=== PATIENT | female | born 1935 | race Caucasian/White ===

== ENCOUNTER 2025-08-10 15:24 | Inpatient (IN) ==
[2025-08-10] MEDS: 0.9 % SODIUM CHLORIDE 1,000 ML IV ONE (16:03)
[2025-08-10 16:15] LABS: Basophils # (Auto) 0.01 K/mcL (0.00-0.30); Basophils % (Auto) 0.1 % (0.0-2.0); Eosinophils # (Auto) 0 K/mcL (0.00-0.70); Eosinophils % (Auto) 0 % (0.0-7.0); Hematocrit 41.0 % (34.1-44.9); Hemoglobin 13.9 g/dL (11.2-15.7); Lymphocytes # (Auto) 1.40 K/mcL (1.50-4.80); Lymphocytes % (Auto) 11.2 % (15.5-49.0); Mean Corpuscular HGB Conc 33.9 g/dL (31.0-36.0); Monocytes # (Auto) 0.65 K/mcL (0.10-0.90); Monocytes % (Auto) 5.2 % (1.0-12.0); Neutrophils % (Auto) 83.0 % (38.0-78.0); Platelet Count 431 K/mcL (140-440); RBC 4.23 M/mcL (3.59-5.38); WBC 12.5 K/mcL (4.5-11.0)
[2025-08-10 16:48] LABS: ALT/SGPT 21 U/L (<40); AST/SGOT 37 U/L (<32); Albumin 4.2 gm/dL (3.2-5.2); Albumin/Globulin Ratio 1.6 (1.0-2.3); Alkaline Phosphatase 100 U/L (39-117); Anion Gap 18.0 (8.0-16.0); Bilirubin,Total 0.8 mg/dL (0.1-1.0); Blood Urea Nitrogen 29 mg/dL (8-23); Calcium 9.9 mg/dL (8.6-10.4); Carbon Dioxide 25 mmol/L (22-30); Chloride 93 mmol/L (96-108); Globulin 2.6 gm/dL (2.2-3.7); Glucose 175 mg/dL (70-105); Potassium 3.8 mmol/L (3.3-5.1); Sodium 136 mmol/L (133-145)
[2025-08-10] MEDS ORDERED: ALBUTEROL SULFATE 2.5 MG/3 ML NEBULIZER NEB PRN (19:14)
[2025-08-10] MEDS: 0.9 % SODIUM CHLORIDE 1,000 ML IV SCH (20:22)
[2025-08-10] MEDS: SENNOSIDES 1 TABLET PO SCH (21:30)
[2025-08-10] MEDS: DOCUSATE SODIUM 100 MG CAPSULE PO SCH (21:30)
[2025-08-11] MEDS: 0.9 % SODIUM CHLORIDE 10 ML SYRINGE IV SCH (01:28)
[2025-08-11] MEDS: FAMOTIDINE/PF 20 MG/2 ML VIAL IV SCH (01:28)
[2025-08-11 03:20] LABS: Bilirubin,Urine NEGATIVE (Negative); Color,Urine YELLOW; Glucose,Urine (UA) NEGATIVE (Negative); Ketones,Urine TRACE mg/dL (Negative); Leukocyte Esterase,Urine NEGATIVE /uL (Negative); PH,Urine 6.0 (5.0-9.0); Protein,Urine TRACE mg/dL (Negative); Specific Gravity,Urine 1.015 (1.000-1.035); Urobilinogen,Urine 0.2 mg/dL
[2025-08-11 06:06] LABS: Basophils # (Auto) 0.01 K/mcL (0.00-0.30); Basophils % (Auto) 0.1 % (0.0-2.0); Eosinophils # (Auto) 0 K/mcL (0.00-0.70); Eosinophils % (Auto) 0 % (0.0-7.0); Hematocrit 33.7 % (34.1-44.9); Hemoglobin 11.4 g/dL (11.2-15.7); Lymphocytes # (Auto) 1.48 K/mcL (1.50-4.80); Lymphocytes % (Auto) 13.7 % (15.5-49.0); Mean Corpuscular HGB Conc 33.8 g/dL (31.0-36.0); Monocytes # (Auto) 0.67 K/mcL (0.10-0.90); Monocytes % (Auto) 6.2 % (1.0-12.0); Neutrophils % (Auto) 79.5 % (38.0-78.0); Platelet Count 360 K/mcL (140-440); RBC 3.46 M/mcL (3.59-5.38); WBC 10.8 K/mcL (4.5-11.0)
[2025-08-11 06:22] LABS: ALT/SGPT 15 U/L (<40); AST/SGOT 20 U/L (<32); Albumin 3.3 gm/dL (3.2-5.2); Albumin/Globulin Ratio 1.7 (1.0-2.3); Alkaline Phosphatase 80 U/L (39-117); Anion Gap 10.0 (8.0-16.0); Bilirubin,Total 0.7 mg/dL (0.1-1.0); Blood Urea Nitrogen 28 mg/dL (8-23); Calcium 8.2 mg/dL (8.6-10.4); Carbon Dioxide 25 mmol/L (22-30); Chloride 103 mmol/L (96-108); Globulin 2.0 gm/dL (2.2-3.7); Glucose 128 mg/dL (70-105); Potassium 3.7 mmol/L (3.3-5.1); Sodium 138 mmol/L (133-145)
[2025-08-11] MEDS ORDERED: fentaNYL 100 MCG/2 ML VIAL ONE (07:13)
[2025-08-11] MEDS ORDERED: PROPOFOL 200 MG/20 ML VIAL IV ONE (07:13)
[2025-08-11] MEDS ORDERED: BUPIVACAINE PF 0.5% 10 ML VIAL ONE (07:15)
[2025-08-11] MEDS ORDERED: ONDANSETRON 4 MG/2 ML VIAL ONE (07:15)
[2025-08-11] MEDS ORDERED: BUPIVACAINE LIPOSOMAL 1.3% 10 ML VIAL IJ ONE (07:15)
[2025-08-11] MEDS ORDERED: GLYCOPYRROLATE 0.2 MG/ML VIAL IV ONE (07:15)
[2025-08-11] MEDS ORDERED: SUCCINYLCHOLINE 200 MG/10 ML VIAL IV ONE (07:15)
[2025-08-11] MEDS ORDERED: DEXAMETHASONE 10 MG/ML VIAL ONE (07:15)
[2025-08-11] MEDS ORDERED: FAMOTIDINE/PF 20 MG/2 ML VIAL IV ONE (07:15)
[2025-08-11] MEDS ORDERED: ROCURONIUM 10 MG/ML ML IV ONE (07:15)
[2025-08-11] MEDS ORDERED: MAGNESIUM SULFATE 2 GM/50 ML BAG IV ONE (07:16)
[2025-08-11] MEDS ORDERED: PHENYLephrine 1 MG/10 ML SYRINGE (ANEST) ONE (07:49)
[2025-08-11] MEDS ORDERED: ePHEDrine 50 MG/5 ML SYRINGE (ANEST) IV ONE (07:50)
[2025-08-11] MEDS ORDERED: SUGAMMADEX SODIUM 200 MG/2 ML VIAL IV ONE (09:00)
[2025-08-11] MEDS ORDERED: IPRATROPIUM/ALBUTEROL 3 ML AMPUL.NEB NEB PRN (09:04)
[2025-08-11] MEDS ORDERED: ONDANSETRON 4 MG/2 ML VIAL IV PRN (09:04)
[2025-08-11] MEDS: ACETAMINOPHEN 1,000 MG/100 ML BAG IV ONE (09:36)
[2025-08-11] MEDS: fentaNYL 100 MCG/2 ML VIAL IV PRN (09:43)
[2025-08-11] MEDS: PIPERACILLIN SODIUM/TAZOBACTAM 3.375 GM in DEXTROSE 5% IN WATER 50 ML IV ONE (10:24)
[2025-08-11] MEDS: PIPERACILLIN SODIUM/TAZOBACTAM 3.375 GM in DEXTROSE 5% IN WATER 100 ML IV SCH (14:51)
[2025-08-12 06:40] LABS: Basophils # (Auto) 0.01 K/mcL (0.00-0.30); Basophils % (Auto) 0.2 % (0.0-2.0); Eosinophils # (Auto) 0 K/mcL (0.00-0.70); Eosinophils % (Auto) 0 % (0.0-7.0); Hematocrit 31.3 % (34.1-44.9); Hemoglobin 10.3 g/dL (11.2-15.7); Lymphocytes # (Auto) 0.99 K/mcL (1.50-4.80); Lymphocytes % (Auto) 15.1 % (15.5-49.0); Mean Corpuscular HGB Conc 32.9 g/dL (31.0-36.0); Monocytes # (Auto) 0.54 K/mcL (0.10-0.90); Monocytes % (Auto) 8.2 % (1.0-12.0); Neutrophils % (Auto) 75.7 % (38.0-78.0); Platelet Count 297 K/mcL (140-440); RBC 3.13 M/mcL (3.59-5.38); WBC 6.6 K/mcL (4.5-11.0)
[2025-08-12 07:28] LABS: ALT/SGPT 22 U/L (<40); AST/SGOT 43 U/L (<32); Albumin 2.9 gm/dL (3.2-5.2); Albumin/Globulin Ratio 1.6 (1.0-2.3); Alkaline Phosphatase 150 U/L (39-117); Anion Gap 6.0 (8.0-16.0); Bilirubin,Total 0.6 mg/dL (0.1-1.0); Blood Urea Nitrogen 24 mg/dL (8-23); Calcium 6.9 mg/dL (8.6-10.4); Carbon Dioxide 26 mmol/L (22-30); Chloride 106 mmol/L (96-108); Globulin 1.8 gm/dL (2.2-3.7); Glucose 119 mg/dL (70-105); Potassium 4.1 mmol/L (3.3-5.1); Sodium 138 mmol/L (133-145)
[2025-08-14 07:52] LABS: ALT/SGPT 14 U/L (<40); AST/SGOT 19 U/L (<32); Albumin 2.6 gm/dL (3.2-5.2); Albumin/Globulin Ratio 1.3 (1.0-2.3); Alkaline Phosphatase 77 U/L (39-117); Anion Gap 9.0 (8.0-16.0); Bilirubin,Direct 0.3 mg/dL (<0.3); Bilirubin,Total 0.4 mg/dL (0.1-1.0); Blood Urea Nitrogen 10 mg/dL (8-23); Calcium 6.5 mg/dL (8.6-10.4); Carbon Dioxide 22 mmol/L (22-30); Chloride 106 mmol/L (96-108); Globulin 2.0 gm/dL (2.2-3.7); Glucose 65 mg/dL (70-105); Phosphorous 1.0 mg/dL (2.5-4.5); Potassium 3.2 mmol/L (3.3-5.1); Sodium 137 mmol/L (133-145); Triglycerides 129 mg/dL (<150); Uric Acid 1.8 mg/dL (2.5-8.0)
[2025-08-14 08:05] LABS: Basophils # (Auto) 0.02 K/mcL (0.00-0.30); Basophils % (Auto) 0.3 % (0.0-2.0); Eosinophils # (Auto) 0.11 K/mcL (0.00-0.70); Eosinophils % (Auto) 1.4 % (0.0-7.0); Hematocrit 33.7 % (34.1-44.9); Hemoglobin 11.0 g/dL (11.2-15.7); Lymphocytes # (Auto) 1.58 K/mcL (1.50-4.80); Lymphocytes % (Auto) 20.8 % (15.5-49.0); Mean Corpuscular HGB Conc 32.6 g/dL (31.0-36.0); Monocytes # (Auto) 0.31 K/mcL (0.10-0.90); Monocytes % (Auto) 4.1 % (1.0-12.0); Neutrophils % (Auto) 72.3 % (38.0-78.0); Platelet Count 314 K/mcL (140-440); RBC 3.38 M/mcL (3.59-5.38); WBC 7.6 K/mcL (4.5-11.0)
[2025-08-14] MEDS: ONDANSETRON 4 MG/2 ML VIAL IV PRN (10:05)
[2025-08-14] MEDS: MAGNESIUM HYDROXIDE 30 ML ORAL.SUSP PO SCH (13:03)
[2025-08-14] MEDS: POTASSIUM PHOSPHATE 40 MEQ in DEXTROSE 5% IN WATER 500 ML IV ONE ×2 (14:37→21:31)
[2025-08-14] MEDS: METOCLOPRAMIDE 10 MG/2 ML VIAL IV SCH (17:43)
[2025-08-14] MEDS: POTASSIUM PHOSPHATE 66 MEQ/15 ML VIAL IV ONE (21:32)
[2025-08-15 05:33] LABS: Basophils # (Auto) 0.03 K/mcL (0.00-0.30); Basophils % (Auto) 0.3 % (0.0-2.0); Eosinophils # (Auto) 0.08 K/mcL (0.00-0.70); Eosinophils % (Auto) 0.9 % (0.0-7.0); Hematocrit 35.3 % (34.1-44.9); Hemoglobin 12.0 g/dL (11.2-15.7); Lymphocytes # (Auto) 1.62 K/mcL (1.50-4.80); Lymphocytes % (Auto) 18.6 % (15.5-49.0); Mean Corpuscular HGB Conc 34.0 g/dL (31.0-36.0); Monocytes # (Auto) 0.50 K/mcL (0.10-0.90); Monocytes % (Auto) 5.7 % (1.0-12.0); Neutrophils % (Auto) 72.9 % (38.0-78.0); Platelet Count 368 K/mcL (140-440); RBC 3.67 M/mcL (3.59-5.38); WBC 8.7 K/mcL (4.5-11.0)
[2025-08-15 05:52] LABS: ALT/SGPT 10 U/L (<40); AST/SGOT 13 U/L (<32); Albumin 2.5 gm/dL (3.2-5.2); Albumin/Globulin Ratio 1.4 (1.0-2.3); Alkaline Phosphatase 62 U/L (39-117); Anion Gap 9.0 (8.0-16.0); Bilirubin,Direct 0.2 mg/dL (<0.3); Bilirubin,Total 0.3 mg/dL (0.1-1.0); Blood Urea Nitrogen 12 mg/dL (8-23); Calcium 6.1 mg/dL (8.6-10.4); Carbon Dioxide 24 mmol/L (22-30); Chloride 102 mmol/L (96-108); Globulin 1.8 gm/dL (2.2-3.7); Glucose 145 mg/dL (70-105); Phosphorous 3.8 mg/dL (2.5-4.5); Potassium 3.6 mmol/L (3.3-5.1); Sodium 135 mmol/L (133-145); Triglycerides 189 mg/dL (<150); Uric Acid 2.6 mg/dL (2.5-8.0)
[2025-08-15] MEDS: LEVOTHYROXINE 100 MCG TABLET PO SCH (06:58)
[2025-08-15] MEDS: POLYETHYLENE GLYCOL 3350 17 GM PACKET PO SCH (09:49)
[2025-08-15] MEDS: CALCIUM GLUCONATE 9.3 MEQ in DEXTROSE 5% IN WATER 50 ML IV SCH (16:06)
[2025-08-15] MEDS: CALCIUM GLUCONATE 4.65 MEQ/10 ML VIAL IV ONE (17:47)
[2025-08-15] MEDS: CALCIUM CARBONATE 1,250 MG/5 ML ORAL.SUSP PO SCH (21:56)
[2025-08-16 06:37] LABS: Basophils # (Auto) 0.03 K/mcL (0.00-0.30); Basophils % (Auto) 0.3 % (0.0-2.0); Eosinophils # (Auto) 0.19 K/mcL (0.00-0.70); Eosinophils % (Auto) 2.2 % (0.0-7.0); Hematocrit 32.9 % (34.1-44.9); Hemoglobin 11.1 g/dL (11.2-15.7); Lymphocytes # (Auto) 1.56 K/mcL (1.50-4.80); Lymphocytes % (Auto) 17.7 % (15.5-49.0); Mean Corpuscular HGB Conc 33.7 g/dL (31.0-36.0); Monocytes # (Auto) 0.52 K/mcL (0.10-0.90); Monocytes % (Auto) 5.9 % (1.0-12.0); Neutrophils % (Auto) 72.7 % (38.0-78.0); Platelet Count 350 K/mcL (140-440); RBC 3.40 M/mcL (3.59-5.38); WBC 8.8 K/mcL (4.5-11.0)
[2025-08-16 07:01] LABS: ALT/SGPT 10 U/L (<40); AST/SGOT 14 U/L (<32); Albumin 2.6 gm/dL (3.2-5.2); Albumin/Globulin Ratio 1.4 (1.0-2.3); Alkaline Phosphatase 66 U/L (39-117); Anion Gap 6.0 (8.0-16.0); Bilirubin,Direct < 0.2 mg/dL (0-0.3); Bilirubin,Total 0.3 mg/dL (0.1-1.0); Blood Urea Nitrogen 10 mg/dL (8-23); Calcium 7.7 mg/dL (8.6-10.4); Carbon Dioxide 26 mmol/L (22-30); Chloride 104 mmol/L (96-108); Globulin 1.9 gm/dL (2.2-3.7); Glucose 95 mg/dL (70-105); Phosphorous 2.0 mg/dL (2.5-4.5); Potassium 3.0 mmol/L (3.3-5.1); Sodium 136 mmol/L (133-145); Triglycerides 155 mg/dL (<150); Uric Acid 2.4 mg/dL (2.5-8.0)
[2025-08-16] MEDS: POTASSIUM PHOSPHATE 40 MEQ in DEXTROSE 5% IN WATER 500 ML IV SCH (17:49)
[2025-08-17 06:25] LABS: Basophils # (Auto) 0.04 K/mcL (0.00-0.30); Basophils % (Auto) 0.6 % (0.0-2.0); Eosinophils # (Auto) 0.24 K/mcL (0.00-0.70); Eosinophils % (Auto) 3.4 % (0.0-7.0); Hematocrit 31.4 % (34.1-44.9); Hemoglobin 10.7 g/dL (11.2-15.7); Lymphocytes # (Auto) 1.56 K/mcL (1.50-4.80); Lymphocytes % (Auto) 21.9 % (15.5-49.0); Mean Corpuscular HGB Conc 34.1 g/dL (31.0-36.0); Monocytes # (Auto) 0.43 K/mcL (0.10-0.90); Monocytes % (Auto) 6.0 % (1.0-12.0); Neutrophils % (Auto) 67.1 % (38.0-78.0); Platelet Count 357 K/mcL (140-440); RBC 3.25 M/mcL (3.59-5.38); WBC 7.1 K/mcL (4.5-11.0)
[2025-08-17 06:45] LABS: ALT/SGPT 11 U/L (<40); AST/SGOT 15 U/L (<32); Albumin 2.6 gm/dL (3.2-5.2); Albumin/Globulin Ratio 1.4 (1.0-2.3); Alkaline Phosphatase 68 U/L (39-117); Anion Gap 8.0 (8.0-16.0); Bilirubin,Direct < 0.2 mg/dL (0-0.3); Bilirubin,Total 0.2 mg/dL (0.1-1.0); Blood Urea Nitrogen 8 mg/dL (8-23); Calcium 8.1 mg/dL (8.6-10.4); Carbon Dioxide 26 mmol/L (22-30); Chloride 104 mmol/L (96-108); Globulin 1.8 gm/dL (2.2-3.7); Glucose 98 mg/dL (70-105); Phosphorous 5.3 mg/dL (2.5-4.5); Potassium 3.9 mmol/L (3.3-5.1); Sodium 138 mmol/L (133-145); Triglycerides 152 mg/dL (<150); Uric Acid 2.0 mg/dL (2.5-8.0)
[2025-08-17] MEDS ORDERED: METOPROLOL TARTRATE 5 MG/5 ML VIAL IV PRN (20:32)
[2025-08-17] MEDS: METOPROLOL TARTRATE 50 MG TABLET PO SCH (21:09)
[2025-08-17 22:10] LABS: Thyroid Stimulating Hormone 20.3 uIU/mL (0.27-5.01)
[2025-08-18 11:21] VITALS: TEMP 98.4; O2SAT 98
== END 2025-08-18 13:40 | DRG 330 ==
LOC: ED 15:24 → MEDSUR 20:15
PROVIDERS: ADMIT Surgery; ATTEND Family Medicine Adult Medicine